=== PATIENT | female | born 1990 | race Hispanic/Latino ===

== ENCOUNTER 2018-01-19 00:07 | Inpatient (IN) | payer OTHER, MEDICAID ==
[~2018-01-19] VITALS: Ht 157.5 cm; Wt 65.3 kg
[2018-01-19 00:26] VITALS: BP 119/57
[2018-01-19] MEDS ORDERED: EPHEDRINE SULFATE 50 MG/ML AMPULE IVP PRN (01:00)
[2018-01-19] MEDS ORDERED: NALOXONE HCL 0.4 MG/1 ML ML IV PRN (01:00)
[2018-01-19] MEDS ORDERED: LACTATED RINGERS 500 ML 500 ML IV PRN (01:00)
[2018-01-19] MEDS ORDERED: ROPIVACAINE 0.2%200ML EPIDURAL 200 ML EP SCH (01:00)
[2018-01-19 01:48] LABS: HEMATOCRIT 37.5 % (36-48); MEAN CORPUSCULAR HEMOGLOBIN 31.7 pg (27.0-33.0); MEAN CORPUSCULAR HGB CONC 34.7 g/dL (32.0-36.0); MEAN CORPUSCULAR VOLUME 91.5 fL (79-99); NUCLEATED RED BLOOD CELLS 0.1 % (0.0-0.19); PLATELET COUNT (AUTO) 142 K/uL (130-400); RED CELL DISTRIBUTION WIDTH 13.6 % (11.0-15.5); WHITE BLOOD COUNT (AUTO) 8.2 K/uL (4.8-10.8)
[2018-01-19] MEDS: LACTATED RINGERS 1000ML 1,000 ML IV PRN ×2 (01:50→03:26)
[2018-01-19] MEDS: CLINDAMYCIN 600 MG/D5% WATER 50 ML IVPB SCH ×2 (01:51→08:40)
[2018-01-19] MEDS: PROMETHAZINE HCL 25 MG/ML 1ML AMPULE IM PRN ×2 (03:09→06:00)
[2018-01-19] MEDS: MEPERIDINE-PF 50 MG/ML SYG IVP PRN ×2 (03:20→06:03)
[2018-01-19 06:47] LABS: RAPID PLASMA REAGIN NONREACTIVE (NONREACTIVE)
[2018-01-19] MEDS ORDERED: OXYTOCIN 10 USP UNITS/ML 20 UNIT in LACTATED RINGERS 1000ML 1,000 ML IV SCH (09:00)
[2018-01-19] MEDS ORDERED: OXYTOCIN 10 USP UNITS/ML ONE ×2 (09:07→11:47)
[2018-01-19] MEDS ORDERED: BENZOCAINE/LANOLIN/ALOE VERA 60 ML AEROSOL TP PRN (10:00)
[2018-01-19] MEDS ORDERED: OXYTOCIN-LR 20 UNITS/1000 ML 1,000 ML IV SCH (10:00)
[2018-01-19] MEDS ORDERED: ACETAMINOPHEN-CODEINE 300/30MG TAB PO PRN (10:00)
[2018-01-19] MEDS ORDERED: MEASLES/MUMPS/RUBELLA VACCINE, LIVE 0.5 ML/VIAL SQ PRN (10:00)
[2018-01-19] MEDS ORDERED: LANOLIN 30GM OINTMENT TP PRN (10:00)
[2018-01-19] MEDS ORDERED: DIPH,PERTUSS(ACELL),TET VAC/PF 0.5 ML VIAL IM PRN (10:00)
[2018-01-19] MEDS ORDERED: WITCH HAZEL 1 PAD TP PRN (10:00)
[2018-01-19 11:50] VITALS: BP 126/77
[2018-01-19 15:40] VITALS: BP 105/64
[2018-01-19] MEDS: IBUPROFEN 800 MG TAB PO PRN (16:14)
[2018-01-19 19:12] VITALS: BP 103/57
[2018-01-19] MEDS: DOCUSATE SODIUM 100 MG CAP PO SCH (20:30)
[2018-01-20 00:35] VITALS: BP 106/65
[2018-01-20 04:32] VITALS: BP 108/68
[2018-01-20 07:31] VITALS: BP 119/68
[2018-01-20 08:21] LABS: HEPATITIS Bs ANTIGEN SCREEN P Negative (Negative)
[2018-01-20] MEDS: DOCUSATE SODIUM 100 MG CAP PO SCH ×2 (08:25→20:23)
[2018-01-20] MEDS: IBUPROFEN 800 MG TAB PO PRN ×2 (08:26→20:32)
[2018-01-20 12:01] VITALS: BP 107/69
[2018-01-20 15:17] VITALS: BP 110/59
[2018-01-20] MEDS: LACTATED RINGERS 1000ML 1,000 ML IV SCH (16:15)
[2018-01-20 19:29] VITALS: BP 119/69
[2018-01-21 00:43] VITALS: BP 112/69
[2018-01-21 04:51] VITALS: BP 116/67
[2018-01-21 07:30] VITALS: BP 106/76
[2018-01-21] MEDS: LACTATED RINGERS 1000ML 1,000 ML IV SCH (08:15)
[2018-01-21] MEDS: DOCUSATE SODIUM 100 MG CAP PO SCH (09:25)
[2018-01-21] MEDS: IBUPROFEN 800 MG TAB PO PRN (09:27)
[2018-01-21 11:45] VITALS: BP 122/70
[2018-01-21 15:25] VITALS: BP 130/82
== END 2018-01-21 16:10 | disposition home or self-care (01) | DRG 775 ==
LOC: EDH 00:07 → LDH 00:08 → OBSVTOIN 00:08 → WSH 11:50
PROC: 10E0XZZ Delivery of Products of Conception, External Approach (ICD-10-PCS; principal; 2018-01-19)
PROC: 0UQMXZZ Repair Vulva, External Approach (ICD-10-PCS; 2018-01-19)
PROC: 3E0234Z Introduction of Serum, Toxoid and Vaccine into Muscle, Percutaneous Approach (ICD-10-PCS; 2018-01-19)
DX: O99.824 Streptococcus B carrier state complicating childbirth (principal); O71.82 Other specified trauma to perineum and vulva; O77.0 Labor and delivery complicated by meconium in amniotic fluid; Z3A.39 39 weeks gestation of pregnancy; Z88.0 Allergy status to penicillin; Z82.49 Family history of ischemic heart disease and other diseases of the circulatory system; Z37.0 Single live birth; O34.211 Maternal care for low transverse scar from previous cesarean delivery; Z23 Encounter for immunization
CPT/HCPCS: 36415; 85027; 86592; 86701; 86850; 86900; 86901; 87340; 87390; 88307; 90707; 90715; A4351; A4606; J2175; J2550; J2590; J3490; J7120

== ENCOUNTER 2019-01-18 10:00 | Observation (INO) | payer MEDICAID, OTHER ==
[~2019-01-18] VITALS: Ht 157.5 cm; Wt 60.8 kg
[2019-01-18] MEDS: LACTATED RINGERS 1000ML 1,000 ML IV PRN ×3 (10:35→19:21)
[2019-01-18 10:44] LABS: BILIRUBIN,URINE Negative (NEGATIVE); COLOR,URINE Yellow (YELLOW); GLUCOSE, URINE (UA) Negative (NEGATIVE); KETONES,URINE Negative (NEGATIVE); LEUKOCYTE ESTERASE ,URINE Moderate (NEGATIVE); NITRATE,URINE Negative (NEGATIVE); OCCULT BLOOD,URINE Negative (NEGATIVE); PROTEIN,URINE Trace mg/dL (NEGATIVE)
[2019-01-18 10:50] LABS: HEMATOCRIT 40.3 % (36-48); MEAN CORPUSCULAR HEMOGLOBIN 31.1 pg (27.0-33.0); MEAN CORPUSCULAR HGB CONC 33.6 g/dL (32.0-36.0); MEAN CORPUSCULAR VOLUME 92.5 fL (79-99); PLATELET COUNT (AUTO) 188 K/uL (130-400); POTASSIUM 3.5 mmol/L (3.5-5.1); RED BLOOD CELL COUNT(AUTO) 4.36 MIL/uL (4.00-5.50); RED CELL DISTRIBUTION WIDTH 12.9 % (11.0-15.5); WHITE BLOOD COUNT (AUTO) 10.1 K/uL (4.8-10.8)
[2019-01-18 10:51] LABS: AMPHET/METH SCREEN,URINE NEGATIVE (NEGATIVE); BARBITURATE SCREEN, URINE NEGATIVE (NEGATIVE); BENZODIAZEPINES SCREEN,URINE NEGATIVE (NEGATIVE); CANNABINOID SCREEN,URINE NEGATIVE (NEGATIVE); COCAINE SCREEN,URINE NEGATIVE (NEGATIVE); OPIATE SCREEN,URINE NEGATIVE (NEGATIVE); PHENCYCLIDINE SCREEN,URINE NEGATIVE (NEGATIVE)
[2019-01-18 10:56] LABS: APPEARANCE,URINE SLIGHTLY CLOUDY (CLEAR)
[2019-01-18 11:12] LABS: BACTERIA,URINE Rare /HPF (None Seen); MUCUS,URINE Rare LPF (None Seen); RBC,URINE 0-1 /HPF (0-1); SQUAMOUS EPITHELIAL CELL,UR Moderate /HPF (0-2); WBC,URINE 26-50 /HPF (0-1)
[2019-01-18] MEDS ORDERED: ONDANSETRON HCL 4 MG/2 ML VIAL IVP SCH (11:30)
[2019-01-18 14:40] VITALS: BP 109/57
[2019-01-18] MEDS ORDERED: PNV71COM3 PO (15:14)
[2019-01-18 16:46] VITALS: BP 110/57
[2019-01-18 20:50] VITALS: BP 114/67
[2019-01-18] MEDS: ONDANSETRON 4 MG TABLET PO PRN (22:05)
[2019-01-18 23:20] VITALS: BP 121/58
[2019-01-19 03:15] VITALS: BP 126/75
[2019-01-19] MEDS: LACTATED RINGERS 1000ML 1,000 ML IV PRN ×2 (03:22→10:49)
[2019-01-19] MEDS: ONDANSETRON 4 MG TABLET PO PRN ×2 (06:14→06:18)
[2019-01-19 07:23] LABS: HEPATITIS Bs ANTIGEN SCREEN P Negative (Negative)
[2019-01-19 07:30] VITALS: BP 101/62
[2019-01-19 11:55] VITALS: BP 102/56
== END 2019-01-19 12:50 | disposition home or self-care (01) ==
LOC: EDH 10:00 → LDH 10:17 → WSH 14:40
DX: O21.2 Late vomiting of pregnancy (principal); O26.893 Other specified pregnancy related conditions, third trimester; R19.7 Diarrhea, unspecified; Z3A.35 35 weeks gestation of pregnancy; Z79.899 Other long term (current) drug therapy
CPT/HCPCS: 36415; 59025 ×2; 80051; 80305; 81001; 85027; 86592; 86850; 86900; 86901; 87046; 87177; 87324; 87340; 96361 ×2; 96374; 99284; A4510; G0378 ×27; J2405; J7120 ×4; Q0162

== ENCOUNTER 2019-06-28 00:27 | Emergency (ER) | payer OTHER ==
[~2019-06-28 00:27] MED LIST: PNV71COM3 PO
[2019-06-28] MEDS ORDERED: ONDANSETRON HCL 4 MG/2 ML VIAL ONE (00:55)
[2019-06-28] MEDS ORDERED: MORPHINE SULFATE 2 MG/ML 1ML SYG ONE ×2 (00:56→02:49)
== END 2019-06-28 04:41 | disposition home or self-care (01) ==
LOC: EDH 00:27
DX: S52.501A Unspecified fracture of the lower end of right radius, initial encounter for closed fracture (principal); S52.611A Displaced fracture of right ulna styloid process, initial encounter for closed fracture; Z88.0 Allergy status to penicillin; Z98.890 Other specified postprocedural states; W19.XXXA Unspecified fall, initial encounter; Y93.89 Activity, other specified; Y92.89 Other specified places as the place of occurrence of the external cause; Y99.8 Other external cause status
CPT/HCPCS: 73090; 73110; 96374; 96375; 96376; 99284; J2405; 29515

== ENCOUNTER 2020-08-04 22:02 | Emergency (ER) | payer OTHER ==
[2020-08-04 23:12] LABS: BASOPHILS % (AUTO) 0.4 % (0.0-5.0); EOSINOPHILS % (AUTO) 0.9 % (0.0-8.0); HEMATOCRIT 43.7 % (36-48); LYMPHOCYTES % (AUTO) 39.1 % (21.0-51.0); MEAN CORPUSCULAR HEMOGLOBIN 31.3 pg (27.0-33.0); MEAN CORPUSCULAR HGB CONC 34.1 g/dL (32.0-36.0); MEAN CORPUSCULAR VOLUME 91.8 fL (79-99); MONOCYTES % (AUTO) 7.6 % (3.0-13.0); NEUTROPHILS % (AUTO) 51.6 % (40.0-77.0); PLATELET COUNT (AUTO) 221 K/uL (130-400); RED BLOOD CELL COUNT(AUTO) 4.76 MIL/uL (4.00-5.50); RED CELL DISTRIBUTION WIDTH 12.7 % (11.0-15.5)
[2020-08-04 23:14] LABS: APPEARANCE,URINE Clear (CLEAR); BILIRUBIN,URINE Negative (NEGATIVE); COLOR,URINE Yellow (YELLOW); GLUCOSE, URINE (UA) Negative (NEGATIVE); KETONES,URINE Negative (NEGATIVE); LEUKOCYTE ESTERASE ,URINE Small (NEGATIVE); NITRATE,URINE Negative (NEGATIVE); OCCULT BLOOD,URINE Negative (NEGATIVE); PH,URINE 7.5 (5.0-8.0); PROTEIN,URINE Negative (NEGATIVE); UROBILINOGEN,URINE 0.2 mg/dL (0.2-1.0)
[2020-08-04 23:22] LABS: BACTERIA,URINE Few /HPF (None Seen); RBC,URINE None Seen /HPF (0-1)
[2020-08-04 23:23] LABS: CREATININE 0.8 mg/dL (0.5-1.5); POTASSIUM 4.2 mmol/L (3.5-5.1)
[2020-08-04 23:34] LABS: ALBUMIN 4.5 g/dL (3.5-5.0); BILIRUBIN,TOTAL 0.5 mg/dL (0.2-1.0); TOTAL PROTEIN, SERUM 8.3 g/dL (6.0-8.3)
[2020-08-04] MEDS ORDERED: ACETAMINOPHEN 325 MG TAB ONE (23:49)
== END 2020-08-05 00:55 | disposition home or self-care (01) ==
LOC: EDH 22:02
DX: Z32.01 Encounter for pregnancy test, result positive (principal); Z88.0 Allergy status to penicillin; Z98.890 Other specified postprocedural states
CPT/HCPCS: 36415; 80053; 81001; 84702; 85025; 86850; 86900; 86901

== ENCOUNTER 2020-08-15 18:41 | Emergency (ER) | payer MEDICAID, OTHER ==
[2020-08-15 19:55] LABS: BASOPHILS % (AUTO) 0.7 % (0.0-5.0); EOSINOPHILS % (AUTO) 0.7 % (0.0-8.0); HEMATOCRIT 42.2 % (36-48); LYMPHOCYTES % (AUTO) 24.9 % (21.0-51.0); MEAN CORPUSCULAR HEMOGLOBIN 31.8 pg (27.0-33.0); MEAN CORPUSCULAR HGB CONC 34.1 g/dL (32.0-36.0); MEAN CORPUSCULAR VOLUME 93.2 fL (79-99); MONOCYTES % (AUTO) 7.7 % (3.0-13.0); NEUTROPHILS % (AUTO) 65.7 % (40.0-77.0); PLATELET COUNT (AUTO) 221 K/uL (130-400); RED BLOOD CELL COUNT(AUTO) 4.53 MIL/uL (4.00-5.50); RED CELL DISTRIBUTION WIDTH 13.2 % (11.0-15.5); WHITE BLOOD COUNT (AUTO) 7.4 K/uL (4.8-10.8)
[2020-08-15 20:05] LABS: CREATININE 0.7 mg/dL (0.5-1.5); POTASSIUM 3.6 mmol/L (3.5-5.1)
[2020-08-15 20:33] LABS: ALBUMIN 4.1 g/dL (3.5-5.0); BILIRUBIN,TOTAL 0.5 mg/dL (0.2-1.0); TOTAL PROTEIN, SERUM 8.4 g/dL (6.0-8.3)
[2020-08-15 20:33] LABS: APPEARANCE,URINE Clear (CLEAR); BILIRUBIN,URINE Negative (NEGATIVE); COLOR,URINE Yellow (YELLOW); GLUCOSE, URINE (UA) Negative (NEGATIVE); KETONES,URINE Negative (NEGATIVE); LEUKOCYTE ESTERASE ,URINE Moderate (NEGATIVE); NITRATE,URINE Negative (NEGATIVE); OCCULT BLOOD,URINE Large (NEGATIVE); PROTEIN,URINE Negative (NEGATIVE); UROBILINOGEN,URINE 0.2 mg/dL (0.2-1.0)
[2020-08-15 20:58] LABS: BACTERIA,URINE Rare /HPF (None Seen); SQUAMOUS EPITHELIAL CELL,UR Few /HPF (0-2)
[2020-08-15] MEDS ORDERED: NITROFURANTOIN MONOHYD/M-CRYST 100 MG CAPSULE PO ONE (21:09)
== END 2020-08-15 21:40 | disposition home or self-care (01) ==
LOC: EDH 18:41
DX: O20.0 Threatened abortion (principal); O23.41 Unspecified infection of urinary tract in pregnancy, first trimester; Z98.890 Other specified postprocedural states; Z88.0 Allergy status to penicillin; Z3A.01 Less than 8 weeks gestation of pregnancy
CPT/HCPCS: 36415; 76801; 76817; 80053; 81001; 84702; 85025; 87077; 87088; 87186